=== PATIENT | male | born 1965 | race Caucasian/White ===

== ENCOUNTER → 2018-10-18 | Outpatient (CLI) | payer OTHER | LOC: CAT 07:16 | DX: Z13.6 Encounter for screening for cardiovascular disorders (principal); E78.00 Pure hypercholesterolemia, unspecified ==

== ENCOUNTER → 2018-11-07 | Outpatient (CLI) | payer OTHER ==
--- NOTE | 2018-11-07 11:35 | EXE ---
[facility] [place] [address] STRESS ECHOCARDIOGRAM Name: MAIA BEATTY Room #: REG CL Li#: [id number] Admission: 11/07/18 Attend Phys: Jim Parra, Discharge: Date of : 61 Date of Service: 11/07/18 1134 Report #: [id number] THIS REPORT FOR: //name// APPROVED REPORT Study performed: 11/07/2018 09:14:44 Exam: Stress Echocardiogram Indication: Palpitations Patient Location: Out-Patient Stress Nurse: Eve Hodge RN Room #: Echo lab 2 Status: routine Ht: 6 ft 3 in HR: 67 bpm BP: 128/80 mmHg Rhythm: NSR Medical History Medical History: No history of CAD Allergies: No known drug allergies Cardiac Risk Factors: Hyperlipidemia Exercise History: Physically active Procedure The patient underwent an Exercise Stress Test using the Jean Protocol. Blood pressure, heart rate, and EKG were monitored. An Echocardiogram was performed by nuclear test technician in four stages in quad fashion. At peak stress, four selected images were obtained and placed side by side with resting images for comparison. Stress Test Details Stress Test: Exercise stress testing was performed using a Jean protocol. HR Resting HR: 67 bpm Max Heart Rate (APMHR): 166 bpm Max HR Achieved: 179 bpm Target HR (85% APMHR): 141 bpm % of APMHR: 107 Recovery HR: 97 bpm HR response to stress: Normal HR response to stress BP Resting BP: 128/80 mmHg Max BP: 162/74 mmHg Recovery BP: 134/72 mmHg [facility] [address] [place] [address] STRESS ECHOCARDIOGRAM Name: MAIA BEATTY Room #: REG Li#: [id number] Admission: 11/07/18 Attend Phys: Jim Parra, Discharge: Date of : 61 Date of Service: 11/07/18 1134 Report #: [id number] BP response to stress: Normal blood pressure response to stress. ECG Resting ECG: Sinus Rhythm Stress ECG: Sinus Tachycardia Arrhythmia: None Recovery ECG: Sinus Rhythm Clinical Reason for Termination: Maximal effort Exercise duration: 10 min 6 sec Highest Stage Achieved: Stage 4: 4.2 mph at 16% grade. Exercise capacity: 13.4 METs Overall Exercise Capacity for Age: Good Stress ECG Conclusion 1.subjectively negative for ischemia 2. electrocardiographically negative for ischemia 3. satisfactory functional capacity Pre-Stress Echo The resting Echocardiogram showed normal left ventricular contractility with an estimated Ejection Fraction of about >55%. Post-Stress Echo The stress Echocardiogram showed normal left ventricular contractility with an estimated Ejection Fraction of about >70%. Clinical Normal augmentation of myocardial wall segments using a 17 segment model. Conclusion Clinical Response: Non-ischemic Exercise Capacity: Average Stress ECG Response: Non-ischemic Stress Echo Images: Non-ischemic 1. low risk study No prior study available for comparison. Other Information Study Quality: Good [facility] [address] [place] [address] STRESS ECHOCARDIOGRAM Name: MAIA BEATTY Room #: REG [facility]#: [id number] Admission: 11/07/18 Attend Phys: Jim Parra, Discharge: Date of : 61 Date of Service: 11/07/18 1134 Report #: [id number] <Conclusion> 1. low risk study <ELECTRONICALLY SIGNED> By: Tay Mosher MD 11/07/18 1134 1134 113 Tay Mosher MD /INF
== END ==
LOC: CV 11-06 14:41
DX: R00.2 Palpitations (principal)

== ENCOUNTER → 2018-12-17 | Outpatient (CLI) | payer OTHER | LOC: RAD 08:41 | DX: R06.02 Shortness of breath (principal); R61 Generalized hyperhidrosis ==